=== PATIENT | male | born 1985 | race Caucasian/White ===

== ENCOUNTER 2021-04-25 13:10 | Emergency (ER) | payer MEDICAID ==
[~2021-04-25] VITALS: Ht 182.9 cm; Wt 81.6 kg
[2021-04-25] MEDS ORDERED: AZIT250T13 PO (13:22)
[2021-04-25] MEDS ORDERED: AMOX1TAB16 PO (13:22)
--- NOTE | 2021-04-25 13:22 | NUR ---
at bedside for assessment
--- NOTE | 2021-04-25 13:40 | NUR ---
PATIENT COMPLAINTS OF RECENT DIAGNOSIS OF PNA THAT IS UNRELIEVED BY PRESCRIBED ANTIBIOTICS
[2021-04-25 15:04] LABS: HEMATOCRIT 40.3 % (36.7-47.1); MEAN CORPUSCULAR HEMOGLOBIN 30.5 uug (23.8-33.4); MEAN CORPUSCULAR VOLUME 87.5 fL (73.0-96.2); PLATELET COUNT (AUTO) 154 K/uL (152-348)
[2021-04-25 15:10] LABS: CREATININE 1.1 mg/dL (0.6-1.3); POTASSIUM 3.7 mmol/L (3.5-5.1)
[2021-04-25 15:15] LABS: BILIRUBIN,DIRECT 0.2 mg/dL (0.0-0.2); BILIRUBIN,TOTAL 0.7 mg/dL (0.2-1.0); TOTAL PROTEIN, SERUM 6.8 g/dL (6.4-8.2)
[2021-04-25] MEDS ORDERED: ONDA4TAB5 PO (15:50)
--- NOTE | 2021-04-25 16:03 | NUR ---
Patient discharged to home in stable condition. No signs of acute distress noted. Written and verbal after care instructions given. Patient verbalizes understanding of instructions. Stressed follow up or return to ER for worsening s/s.
[2021-04-25 16:09] VITALS: BP 123/74
== END 2021-04-25 16:00 | disposition home or self-care (01) ==
LOC: EDSEX 13:10 → ER 13:10
DX: J18.9 Pneumonia, unspecified organism (principal); R04.2 Hemoptysis; E87.1 Hypo-osmolality and hyponatremia; E87.8 Other disorders of electrolyte and fluid balance, not elsewhere classified; R21 Rash and other nonspecific skin eruption; F17.210 Nicotine dependence, cigarettes, uncomplicated
CPT/HCPCS: 36415; 71045; 83605; 85025; 87040; 93005; A4663